=== PATIENT | male | born 1995 ===

== ENCOUNTER 2016-11-23 20:29 | Emergency (ER) | payer OTHER ==
[2016-11-23 21:07] VITALS: BP 117/75; PULSE 71; RESP 20; TEMP 98.2; O2SAT 98
--- NOTE | 2016-11-23 21:39 | C.PDOC ---
Time Seen by Provider: 11/23/16 21:11 Chief Complaint (Nursing): Back Pain Past Medical History Vital Signs: Last Vital Signs Temp 98.2 F 11/23/16 21:04 Pulse 71 11/23/16 21:04 Resp 20 11/23/16 21:04 BP 117/75 11/23/16 21:04 Pulse Ox 98 11/23/16 21:04 - Social History Hx Alcohol Use: Yes Hx Substance Use: No - Immunization History Hx Tetanus Toxoid Vaccination: No Hx Influenza Vaccination: No Hx Pneumococcal Vaccination: No ED Course And Treatment O2 Sat by Pulse Oximetry: 98 Disposition Counseled Patient/Family Regarding: Diagnosis, Need For Followup, Rx Given - Disposition Disposition: HOME/ ROUTINE Disposition Time: 21:35 Condition: STABLE Additional Instructions: PLease follwo up with pMD or in clinic Prescriptions: Ibuprofen [Motrin] 600 mg PO Q6H #20 tab Instructions: Muscle Strain (ED) - Clinical Impression Clinical Impression: Low back strain
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
== END 2016-11-23 21:49 | disposition home or self-care (01) ==
LOC: C.ER 20:29
DX: S39.012A Strain of muscle, fascia and tendon of lower back, initial encounter (principal); V89.2XXA Person injured in unspecified motor-vehicle accident, traffic, initial encounter